=== PATIENT | male | born 1945 | race Caucasian/White ===

== ENCOUNTER → 2017-01-21 | Outpatient (CLI) | payer MEDICARE, BC ==
--- NOTE | 2017-01-21 11:45 | RADRPT ---
PROCEDURE: Right knee radiographs. CLINICAL INDICATION: Right knee pain. TECHNIQUE: Three views. Weight bearing. Frontal, lateral, and patellar view. COMPARISON: 01/27/2014. FINDINGS: There is no fracture or dislocation. Vascular calcifications are present consistent with atherosclerosis. There are degenerative changes with osteophytes arising from all 3 joint compartment margins. There is medial joint compartment narrowing, subarticular sclerosis, and mild deformity. There is no lytic or blastic lesion. There is no radiopaque foreign body. IMPRESSION: 1. Moderate to severe degenerative changes of the right knee predominately involving the medial marli nt compartment. 2. No acute abnormality. RPTAT: QQ .Mark Callahan MD, MD Date Time Electronically viewed and signed by .Mark Callahan MD, MD on 01/21/2017 11:45 .R/
--- NOTE | 2017-01-21 18:07 | HKNOTE ---
DATE OF SERVICE: 01/21/2017 REASON FOR ADMISSION: The patient comes in requesting a further injection of cortisone into his right knee. He not yet ready to consider proceeding with surgery. He walks without the cane. He can walk about 2 blocks without stopping. PHYSICAL EXAMINATION: RIGHT KNEE: Examination of the right knee. Extension lacks 15 degrees. Flexion is to 100 degrees. 6+ crepitus in the knee. None of patella. Pain at limits of motion. 1+ effusion. IMAGING: Plain x-rays of the right knee obtained today show bone- on-bone degenerative changes medially, but remarkably has good joint space laterally and in the patellofemoral joint. DISCUSSION: Although this man is 71 years old, it is quite possible that all he needs is a partial knee replacement. This was discussed with him today. He indicates that he is not yet ready to consider surgery on his knee. PLAN: Under sterile condition, he was given injection of 2 mL of Kenalog and 6 mL, and 2 percent lidocaine into the knee. He will be seen again as necessary for further evaluation and treatment. Dictated By: Arnaldo Santana MD /flavio/george /Document#: [id number]
== END | disposition home or self-care (01) ==
LOC: HKI 10:00
DX: M25.561 Pain in right knee (principal)
CPT/HCPCS: 20610; 73562; G0463

== ENCOUNTER → 2017-08-15 | Outpatient (CLI) | END | disposition home or self-care (01) ==

== ENCOUNTER → 2017-11-10 | Outpatient (CLI) | END | disposition home or self-care (01) ==

== ENCOUNTER → 2018-03-10 | Outpatient (CLI) | END | disposition home or self-care (01) ==

== ENCOUNTER → 2018-04-09 | Outpatient (CLI) | payer MEDICARE, BC ==
--- NOTE | 2018-04-10 11:01 | RADRPT ---
PROCEDURE: Bilateral knee x-rays CLINICAL INDICATION: Pain TECHNIQUE: AP and lateral weightbearing views, and sunrise views of the bilateral knees were obtain ed. COMPARISON: 01/21/2017 right knee radiograph. FINDINGS: Right Knee: No acute fracture or dislocation is seen. There is mild tricompartment osteophytes. There is severe medial compartment joint space narrowing wi th bone on bone articulation. Apparent mild patellofemoral compartment joint space narrowing. Mild qu adriceps enthesopathy. Atherosclerosis. Left Knee: No acute fracture or dislocation is seen. Apparent mild lateral subluxation of the patella on the sun rise view. Mild tricompartment osteophytes. Apparent mild medial and lateral compartment joint space narrowing. Atherosclerosis. IMPRESSION: 1. Tricompartment degenerative changes of the right knee as above, including severe medial compartmen t joint space narrowing with bone on bone articulation. 2. Tricompartment degenerative change of the left knee as above, including apparent mild medial and lateral compartment joint space narrowing. Apparent mild lateral subluxation of the left patella on t he sunrise view. 3. Bilateral mild quadriceps enthesopathy. 4. Atherosclerosis. RPTAT: PP Physician Carla Date Time Electronically viewed and signed by Physician Carla on 04/10/2018 11:00 RP/
--- NOTE | 2018-04-10 11:12 | RADRPT ---
PROCEDURE: XR Hip 3 views right (AP pelvis AP/L). CLINICAL INDICATION: PAIN TECHNIQUE: 3 views of the pelvic bones are provided, labeled AP weightbearing view of the pelvis, as well as AP and lateral weightbearing views of the right hip. COMPARISON: [facility] 10/18/2015; FINDINGS: There is mild prominence of the anterosuperior aspect of the right femoral cervicocapital junction. Degenerative changes of the right femoroacetabular joint are noted, including joint space narrowing m ore severe superiorly with bone on bone articulation and subchondral sclerotic changes. A left total hip arthroplasty is partially visualized. Mild multifocal pelvic enthesopathy is noted. Also partially visualized are postsurgical changes of L5-S1 posterior spinal fusion with transpedicul ar screws as well as postsurgical changes at the L4-L5 and L5-S1 discs. Mild degenerative changes of the lower lumbar spine are partially visualized. IMPRESSION: 1. Degenerative changes of the right femoroacetabular joint, including joint space narrowing more sev ere superiorly with bone on bone articulation at this level. 2. Mild prominence of the anterosuperior aspect of the right femoral cervicocapital junction, may re present Cam type impingement. 3. Postsurgical changes as above, partially visualized. RPTAT: PP Physician Carla Date Time Electronically viewed and signed by Physician Carla on 04/10/2018 11:12 RP/
--- NOTE | 2018-04-10 14:15 | CONS ---
Date/Time of Note Date/Time of Note DATE: 04/10/18 TIME: 13:55 Assessment/Plan Assessment/Plan Chief Complaint/Hosp Course This is a 72-year-old male with osteoarthritis of the right hip and knee. In addition he also has instability of the right knee secondary to bone loss and ligamentous laxity. Reviewing the patient's medical history and discussed with the patient I do not believe he is a good surgical candidate as he is very high risk for complications both infection and cardiopulmonary. I discussed with him that particular dialysis patients are very high risk of infection. I discussed with him that at this time I would strongly recommend conservative treatment for both his hip and knee. In addition he is also not ready for surgery as he had a recent severe complication from anesthesia. Will continue injection therapy as this has been successful for his knee. In addition given his pattern of arthritis as well as instability on examination he would benefit from a medial drapery supervisor brace. A prescription will be given to the patient for the medial drapery supervisor brace. He is to follow-up on a as needed basis Additional Assessment/Plan Right knee steroid injection procedure: Risks and benefits of steroid injection reviewed with patient. The risks include infection, failure, pain, swelling, nerve/tendon/ligament damage. The patient verbalized understanding and verbal consent was obtained prior to procedure. The right knee was prepped in a sterile fashion with alcohol and betadine the site of injection was confirmed. Anteromedial approach was used. The skin and capsule was anesthetized with 3mL 1% lidocaine. The right knee was injected with 2mL 1% lidocaine, 2mL 0.25% bupivacaine, 40mg Depo-Medrol. Injection flowed freely. Good hemostasis was achieved and no complications noted. The patient tolerated the procedure well. Limit activity and ice for 24-48 hours Consultation Date/Type/Reason Admit Date/Time Date of Consultation: Apr 09, 2018 Reason for Consultation Right hip and knee pain Hx of Present Illness Ana is a 72-year-old male Yandy presenting with long-standing right knee and hip pain. He was a previous patient of Dr. Santana. He has had numerous injections to his right knee which do provide him some relief. His last injection was about 4 months ago which again provided him good relief. He is also complaining of significant groin pain that is exacerbated by weightbearing and ambulating. His knee and hip pain is rated 7/10 it is sharp and stabbing. He does have a history of back problems he underwent spinal surgery this past October. Unfortunately he had a severe reaction to the anesthetic and was hospitalized for quite some time and suffered extensive deconditioning. He now uses a walker where prior he was only using a cane. In addition to his groin pain his knee pain is anterior medial. His knee feels unstable when he walks. He is interested in trying a brace. He also has history of diabetes mellitus. He does not know his most recent hemoglobin A1c. He is on dialysis 3 days a week and has significant peripheral neuropathy. Patient denies fever, chills, shortness of breath, chest pain, nausea/vomiting, constipation, diarrhea Past Medical History Diabetes mellitus Renal failuredialysis 3 days a week Obesity Peripheral diabetic neuropathy Dyslipidemia Gout BPH Coronary artery disease Past Surgical History Left hip replacement Lumbar spine surgery Social History Alcohol Use: other Smoking Status: Smoker,current status unk Drug Use: none Exam/Review of Systems Vital Signs Vitals Weight: 2 4 6 pounds Height: 6 foot 3 inches Temperature: 98.2 Heart Rate: 71 Blood Pressure: 114/74 Respiratory Rate: 14 Exam General: Awake, alert, in no acute distress, pleasant and cooperative Heart: regular rhythm Lungs: breathing comfortably, no tachypnea or dyspnea Musculoskeletal: Well developed male in no apparent distress. Gait demonstrates a Trendelenburg with antalgic components and short leg component. Standing, the pelvis is level. Moderate tenderness over trochanteric bursa or IT band. ----- Range of motion: Flexion: 1 to Extension: 0 Internal rotation: 20 External rotation: 20 Abduction: 30 Adduction: Midline ----- Right Knee Skin is intact over the right knee as well as the lower extremity with no abrasions, lacerations, or ulcerations. Observation of the patient's gait reveals an antalgic gait with Large varus thrust. Frontal plane alignment is varus. There is pain on palpation of medial joint line. The patient demonstrates grinding anteriorly with ROM. Range of motion: 0 extension to approximately 120 degrees of flexion. Collateral ligament testing reveals instability to valgus stress secondary to severe degeneration medial compartment and MCL laxity. Remainder of the knee shows no instability with varus or valgus stress at 0 and 30 degrees of flexion. Negative Chris's and negative posterior drawer. Sitting there is no pelvic obliquity. Pain at the extremes of motion of the affected hip. Skin was intact throughout both lower extremities. Sensation decreased to light touch in a sural, saphenous, deep peroneal, superficial peroneal, medial and lateral plantar nerve distribution. Neurovascular exam showed 5/5 strength in the abductors, quads, EHL/tibialis anterior/gastroc. Normal and symmetrical pulses were palpated in both the dorsalis pedis and posterior tibial arteries. There is no sign of venous stasis. IMAGING: The patient received a full set of films and personally reviewed by myself today in clinic including an AP pelvis and an AP and lateral of the affected hip. The hip is reduced. There is complete loss of joint space. There is osteophyte formation. There is subchondral sclerosis. There are subchondral cysts. There is no significant deformity of the the proximal femur, femoral neck, or acetabulum. The pelvis is in continuity. Bone quality radiographically: Fair The patient received a standard set of films today that were personally reviewed. Imaging included a standing bilateral knee AP, PA flexion, merchant views and a dedicated lateral of the affected knee: There is varus alignment of the knee. There is loss of joint space patellofemoral compartment and near complete loss in the medial compartment(s). There is osteophyte formation. There is subchondral sclerosis. There are subchondral cysts. Degenerative changes are most severe in the medial compartment(s) BOLA WELCH MD Apr 10, 2018 14:06
== END | disposition home or self-care (01) ==
LOC: HKI 15:18
PROVIDERS: ATTEND Orthopaedic Surgery Adult Reconstructive Orthopaedic Surgery
DX: M16.11 Unilateral primary osteoarthritis, right hip (principal); M17.11 Unilateral primary osteoarthritis, right knee
CPT/HCPCS: 20610; 73502; 73562; G0463

== ENCOUNTER → 2018-08-27 | Outpatient (CLI) | payer MEDICARE, BC ==
--- NOTE | 2018-08-27 17:44 | CONS ---
Consult Date/Type/Reason Admit Date/Time Initial Consult Date Date/Time of Note DATE: 08/27/18 TIME: 17:41 Subjective This is a 73-year-old male who follows up in clinic today for repeat bilateral knee injections. He has history of multiple medical problems including renal failure on dialysis 3 times a week, coronary artery disease, and diabetes and peripheral neuropathy. He last had a right knee injection 3 months ago and this was Monovisc. It did provide 3 months of relief. He would like another injection today. However secondary to coverage issues Monovisc will not be able to be administered today. He would like to proceed with bilateral steroid inj ections. Denies any changes in his symptoms. Objective Vitals Weight: 256 pounds Height: 6 feet 3 inches Temperature: 98 point Heart Rate: 91 Blood Pressure: 140/73 Respiratory Rate: 16 Exam General: Awake, alert, in no acute distress, pleasant and cooperative Heart: regular rhythm Lungs: breathing comfortably, no tachypnea or dyspnea MUSCULOSKELETAL: Bilateral lower extremity: Skin is intact. There are significant venous stasis changes bilateral lower extremities. No erythema Sensation intact to light touch in a sural, saphenous, deep peroneal, superficial peroneal, medial and lateral plantar nerve distribution. Motor is intact, patient able to dorsiflex and plantarflex ankle and extend and flex great toe. Dorsalis Pedis pulse +2, Brisk capillary refill. Compartments are soft. Calves non-tender to palpation bilaterally. Assessment/Plan Hospital Course (Demo Recall) 73-year-old male with end-stage osteoarthritis of the right knee and moderate arthritis of the left knee with multiple medical problems including coronary artery disease, renal failure on dialysis, diabetes. He currently is not a surgical candidate secondary to significant comorbidities. Patient understands this and wishes to proceed with continued injection therapy. If these injections fail he may be a good candidate for a genicular nerve block. Plan: Bilateral knee steroid injection Low impact activity Follow-up 3 months Assessment/Plan (Daily) Bilateral knee steroid injection procedure: Risks and benefits of steroid injection reviewed with patient. The risks include infection, failure, pain, swelling, nerve/tendon/ligament damage. The patient verbalized understanding and verbal consent was obtained prior to procedure. The right and left knee was prepped in a sterile fashion with alcohol and b etadine the site of injection was confirmed. Lateral approach was used. The skin and capsule was anesthetized with 3mL 1% lidocaine. The right and left knee were each injected with 2mL 1% lidocaine, 2mL 0.25% bupivacaine, 40mg Depo- Medrol. Injection flowed freely. Good hemostasis was achieved and no complications noted. The patient tolerated the procedure well. Limit activity and ice for 24-48 hours BOLA WELCH MD August 27, 2018 17:44
== END | disposition home or self-care (01) ==
LOC: HKI 13:34
PROVIDERS: ATTEND Orthopaedic Surgery Adult Reconstructive Orthopaedic Surgery
DX: M25.561 Pain in right knee (principal); M25.562 Pain in left knee; M17.11 Unilateral primary osteoarthritis, right knee; M17.12 Unilateral primary osteoarthritis, left knee
CPT/HCPCS: 20610; G0463